=== PATIENT | male | born 1995 | race Caucasian/White ===

== ENCOUNTER → 2019-06-07 | Outpatient (CLI) | payer BC | LOC: M.MRI 13:11 | DX: S06.9X Unspecified intracranial injury (principal); X58.XXXA Exposure to other specified factors, initial encounter; Y93.89 Activity, other specified; Y92.89 Other specified places as the place of occurrence of the external cause; Y99.8 Other external cause status ==

== ENCOUNTER 2020-07-21 15:19 | Emergency (ER) | payer OTHER, BC ==
[~2020-07-21] VITALS: Ht 190.5 cm; Wt 111.1 kg
[2020-07-21 15:51] LABS: ABSOLUTE BASOPHILS 0.1 thou/uL (0.0-0.2); ABSOLUTE EOSINOPHILS 0.6 thou/uL (0.0-0.7); ABSOLUTE LYMPHOCYTES 2.9 thou/uL (0.8-5.3); ABSOLUTE MONOCYTES 0.6 thou/uL (0.0-1.2); ABSOLUTE NEUTROPHILS 4.3 thou/uL (1.6-8.1); BASOPHILS 1.1 %; EOSINOPHILS 7.1 %; HEMATOCRIT 48.7 % (42.0-52.0); LYMPHOCYTES 34.4 %; MCH 31.6 pg (26.0-34.0); MCV 90.3 fL (80.0-100.0); MONOCYTES 6.7 %; MPV 9.2 fl. (7.2-11.1); NUCLEATED RBCS 0 /100WBC; PLATELET COUNT* 213 thou/uL (150-400); POLYS 50.7 %; RBC 5.39 mil/uL (4.50-6.00); RDW-CV 12.8 % (10.5-14.5); WBC 8.5 thou/uL (4.0-11.0)
[2020-07-21 16:03] LABS: CALCIUM 9.5 mg/dL (8.5-10.1); POTASSIUM 4.6 mmol/L (3.5-5.1)
[2020-07-21 16:06] LABS: ALBUMIN 4.1 g/dL (3.4-5.0); TOTAL BILIRUBIN 1.1 mg/dL (<0.1-1.0); TOTAL PROTEIN 7.1 g/dL (6.4-8.2)
[2020-07-21] MEDS ORDERED: PREDNISONE 20 M20 MG PO (17:55)
[2020-07-21] MEDS ORDERED: PROAIR HFA8.5 GM INH (17:55)
[2020-07-21] MEDS ORDERED: ZPAK PO (17:55)
[2020-07-21 18:19] VITALS: BP 122/72
== END 2020-07-21 18:20 | disposition home or self-care (01) ==
LOC: M.ERS 15:19
PROVIDERS: Physician Assistant
DX: J20.9 Acute bronchitis, unspecified (principal); R04.2 Hemoptysis; Z20.828 Contact with and (suspected) exposure to other viral communicable diseases; Z86.711 Personal history of pulmonary embolism

== ENCOUNTER 2021-04-11 15:48 | Emergency (ER) | payer BC ==
[~2021-04-11 15:48] MED LIST: PREDNISONE 20 M20 MG PO; PROAIR HFA8.5 GM INH; ZPAK PO
== END 2021-04-11 16:02 | disposition left against medical advice (07) ==
LOC: M.ERS 15:48
DX: Z20.822 Contact with and (suspected) exposure to COVID-19 (principal); Z53.21 Procedure and treatment not carried out due to patient leaving prior to being seen by health care provider

== ENCOUNTER 2021-06-11 10:20 | Emergency (ER) | payer BC ==
[~2021-06-11] VITALS: Ht 190.5 cm; Wt 104.3 kg
[2021-06-11 11:38] LABS: INFLUENZA A ANTIGEN Negative (Negative); INFLUENZA B ANTIGEN Negative (Negative)
[2021-06-11] MEDS ORDERED: MEDROLDOSEPACK PO (11:50)
[2021-06-11] MEDS ORDERED: DOXYCYCLINE 10100 MG PO (11:50)
[2021-06-11] MEDS ORDERED: TESSALON PERLE100 MG PO (11:50)
[2021-06-11] MEDS ORDERED: VENTOLIN HFA 1818 GM INH (11:53)
[2021-06-11 11:58] VITALS: BP 124/72
== END 2021-06-11 11:58 | disposition home or self-care (01) ==
LOC: M.ERS 10:20
PROVIDERS: Nurse Practitioner Family
DX: J98.8 Other specified respiratory disorders (principal); Z20.822 Contact with and (suspected) exposure to COVID-19; Z91.038 Other insect allergy status